=== PATIENT | male | born 1985 | race African-American/Black ===

== ENCOUNTER 2019-02-22 02:43 | Emergency (ER) | payer SELFPAY ==
[~2019-02-22] VITALS: Ht 188 cm; Wt 129.7 kg
[2019-02-22 02:47] VITALS: BP 132/65; Ht 188 cm; Wt 129.7 kg
== END 2019-02-22 03:30 | disposition home or self-care (01) ==
LOC: ED 02:43
DX: L25.9 Unspecified contact dermatitis, unspecified cause (principal); J45.909 Unspecified asthma, uncomplicated
CPT/HCPCS: J7512